=== PATIENT | female | born 1970 | race Caucasian/White ===

== ENCOUNTER → 2022-06-12 | Outpatient (CLI) | payer OTHER | END | disposition home or self-care (01) | LOC: RAD 10:12 | PROVIDERS: ATTEND Orthopaedic Surgery | DX: M25.552 Pain in left hip (principal) ==

== ENCOUNTER → 2022-07-17 | Outpatient (CLI) | payer OTHER | END | disposition home or self-care (01) | LOC: RAD 06-04 08:00 | PROVIDERS: ATTEND Specialist | DX: R13.10 Dysphagia, unspecified (principal) ==

== ENCOUNTER 2023-06-04 11:16 | Emergency (ER) | payer OTHER ==
[2023-06-04 12:31] LABS: BASO % 0.7 % (0.0-1.0); EOS # 0.1 10*3/uL (0.0-0.4); EOS % 1.8 % (1.0-4.0); HEMATOCRIT 42.7 % (37.0-47.0); LYMPH # 1.5 10*3/uL (1.3-4.4); LYMPH % 24.4 % (27.0-41.0); MEAN CELL VOLUME 98.2 fl (81.0-99.0); MEAN CORPUSCULAR HGB 32.6 pg (27.0-31.0); MEAN CORPUSCULAR HGB CONC 33.3 g/dl (33.0-37.0); MEAN PLATELET VOLUME 10.4 fl (9.6-12.3); MONO # 0.4 10*3/uL (0.1-1.0); MONO % 6.6 % (3.0-9.0); NEUT % 66.2 % (47.0-73.0); PLATELET COUNT AUTOMATED 224 10*3/uL (130-400); RED BLOOD COUNT 4.35 10*6/uL (4.10-5.10); WHITE BLOOD COUNT 6.1 10*3/uL (4.8-10.8)
[2023-06-04 12:53] LABS: ALKALINE PHOSPHATASE 41 U/L (46-116); BUN 7 mg/dl (9-23); CHLORIDE 109 mmol/L (98-107); LIPASE 33 U/L (12-53); POTASSIUM 3.7 mmol/L (3.4-5.1); SGPT/ALT 16 U/L (10-49); TOTAL PROTEIN 6.9 gm/dL (6.0-8.0)
== END 2023-06-04 14:28 | disposition home or self-care (01) ==
LOC: ED 11:16
PROVIDERS: Emergency Medicine
DX: R10.13 Epigastric pain (principal)